=== PATIENT | female | born 1970 | race African-American/Black ===

== ENCOUNTER 2017-05-31 16:03 | Emergency (ER) | payer SELFPAY ==
[~2017-05-31] VITALS: Ht 182.9 cm; Wt 100.0 kg
[~2017-05-31 16:03] MED LIST: TOPA25TA8 PO
[2017-05-31 16:06] VITALS: BP 143/73; PULSE 74; RESP 18; TEMP 98.6; O2SAT 100
--- NOTE | 2017-05-31 16:15 | PD ---
Physical Exam Date Seen by Provider: May 31, 2017 Time Seen by Provider: 16:13 Narrative 46 yr old female with no PMH here with c/o chest pain for 24 hours, radiating left arm pain for 8 hours and sob for 17 days. 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 She denies any recent travel or long trips. Her PCP is Dr. Hull. She is awaiting bed placement. Data Data Last Documented VS Vital Signs Date Time Temp Pulse Resp B/P (MAP) Pulse Ox O2 Delivery O2 Flow Rate FiO2 05/31/17 16:06 98.6 74 18 143/73 (96) 100 Room Air MDM Medical Record Reviewed: Yes Supervised Visit with ANANTH: No Condition: Stable Elaine Castrejon May 31, 2017 16:15
[2017-05-31] MEDS ORDERED: SODIUM CHLORIDE 0.9% FLUSH 10 ML FLUSH IVF PRN (16:30)
--- NOTE | 2017-05-31 17:24 | RADRPT ---
EXAM DATE/TIME: 05/31/2017 16:39 [facility] COMPARISON: No previous studies available for comparison. INDICATIONS : Chest pain for 8 hours, shortness of breath for 2 weeks MEDICAL HISTORY : Pulmonary emboli, TIA SURGICAL HISTORY : None. ENCOUNTER: Initial ACUITY: 1 day PAIN SCORE: 9/10 LOCATION: Bilateral chest FINDINGS: PA and lateral views of the chest demonstrate the lungs to be symmetrically aerated without evidence of mass, infiltrate or effusion. The cardiomediastinal contours are unremarkable. Osseous structure s are intact. CONCLUSION: No acute disease. Rod Hoffman MD FACR on May 31, 2017 at 17:22 Board Certified Radiologist. This report was verified electronically.
--- NOTE | 2017-05-31 19:26 | PD ---
HPI Chief Complaint: Chest Pain Time Seen by Provider: 19:12 Travel History International Travel<30 days: No Contact w/Intl Traveler<30days: No Traveled to known affect area: No History of Present Illness HPI Patient comes in complaining of shortness of breath ongoing for 17 days. Patient states more she woke having substernal chest pain that radiates to her back and her left upper extremity. Patient denies doing anything for this. Patient denies nausea, vomiting, fevers, cough, abdominal pain, change in bowel or bladder, numbness or tingling anywhere. Patient reports a history of a PE approximately 4 years ago was on blood thinners for approximately 6 months and taken off. Patient reports pain is worse with movement. Reports shortness of breath is worse when she is around smoke. Denies anything making it better. 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 ) Diabetes: No Diminished Hearing: No Glaucoma: No Headaches: Yes (NEUROPALEGIC MIGRAINES) Hepatitis: No Hiatal Hernia: No Hypertension: Yes Medical other: No (hx of tia,pneumonia,anemia,hemiplegic migraines) Musculoskeletal: No Neurologic: Yes (hemipelegic migraines) Psychiatric: No Reproductive: No Respiratory: Yes (PE) Migraines: Yes Seizures: No Thyroid Disease: No ?: Not LMP: 05/09/17 Past Surgical History Abdominal Surgery: Yes (hernia repair) Gynecologic Surgery: Yes (cervical bx) Other Surgery: No Social History Alcohol Use: Yes (OCCASIONALLY) Tobacco Use: No Substance Use: No Allergies-Medications (Allergen,Severity, Reaction): Coded Allergies: mushroom (Unverified Allergy, Severe, ITCHING, 05/31/17) warfarin (Unverified Allergy, Severe, Swelling, 05/31/17) naproxen (Unverified Allergy, Intermediate, HEADACHE, 05/31/17) Reported Meds & Prescriptions Reported Meds & Active Scripts Active No Active Prescriptions or Reported Medications Review of Systems Except as stated in HPI: all other systems reviewed are Neg Physical Exam Narrative GENERAL: Well-developed, overly nourished, in no acute distress, and non-ill appearing. SKIN: Focused skin assessment warm and dry. HEAD: Atraumatic. Normocephalic. EYES: Pupils equal and round. EOMI. No scleral icterus. No injection or drainage. ENT: No nasal bleeding or discharge. Mucous membranes pink and moist. NECK: Trachea midline. No JVD. Supple. No nuclear rigidity. CARDIOVASCULAR: Regular rate and rhythm. No murmur appreciated. RESPIRATORY: No accessory muscle use. No respiratory distress. Clear to auscultation. Breath sounds equal bilaterally. MUSCULOSKELETAL: No obvious deformities. No clubbing. No cyanosis. No edema. Full range of motion. NEUROLOGICAL: Awake and alert. No obvious cranial nerve deficits. Motor grossly within normal limits. Normal speech. PSYCHIATRIC: Appropriate mood and affect; insight and judgment normal. Data Data Last Documented VS Vital Signs Date Time Temp Pulse Resp B/P (MAP) Pulse Ox O2 Delivery O2 Flow Rate FiO2 05/31/17 23:44 05/31/17 16:06 98.6 74 18 100 Room Air Orders Orders Electrocardiogram (05/31/17 16:16) Basic Metabolic Panel (Bmp) (05/31/17 16:16) Ckmb (Isoenzyme) Profile (05/31/17 16:16) Complete Blood Count With Diff (05/31/17 16:16) D-Dimer (05/31/17 16:16) Magnesium (Mg) (05/31/17 16:16) Prothrombin Time / Inr (Pt) (05/31/17 16:16) Act Partial Throm Time (Ptt) (05/31/17 16:16) Troponin I (05/31/17 16:16) Sodium Chloride 0.9% Flush (Ns Flush) (05/31/17 16:30) Chest, Pa & Lat (05/31/17 16:16) CKMB (05/31/17 20:05) CKMB% (05/31/17 20:05) Ct Pulmonary Angiogram (05/31/17 ) Iohexol 350 Inj (Omnipaque 350 Inj) (05/31/17 22:19) Labs Laboratory Tests Test 05/31/17 20:05 White Blood Count 6.5 TH/MM3 Red Blood Count 4.16 MIL/MM3 Hemoglobin 11.4 GM/DL Hematocrit 35.7 % Mean Corpuscular Volume 85.9 FL Mean Corpuscular Hemoglobin 27.4 PG Mean Corpuscular Hemoglobin Concent 31.9 % Red Cell Distribution Width 13.6 % Platelet Count 307 TH/MM3 Mean Platelet Volume 8.3 FL Neutrophils (%) (Auto) 51.9 % Lymphocytes (%) (Auto) 36.1 % Monocytes (%) (Auto) 9.9 % Eosinophils (%) (Auto) 1.5 % Basophils (%) (Auto) 0.6 % Neutrophils # (Auto) 3.4 TH/MM3 Lymphocytes # (Auto) 2.4 TH/MM3 Monocytes # (Auto) 0.6 TH/MM3 Eosinophils # (Auto) 0.1 TH/MM3 Basophils # (Auto) 0.0 TH/MM3 CBC Comment DIFF FINAL Differential Comment Prothrombin Time 11.1 SEC Prothromb Time International Ratio 1.0 RATIO Activated Partial Thromboplast Time 23.8 SEC D-Dimer Quantitative (PE/DVT) 0.42 MG/L FEU Blood Urea Nitrogen 7 MG/DL Creatinine 0.75 MG/DL Random Glucose 72 MG/DL Calcium Level 8.8 MG/DL Magnesium Level 1.8 MG/DL Sodium Level 139 MEQ/L Potassium Level 3.6 MEQ/L Chloride Level 105 MEQ/L Carbon Dioxide Level 26.2 MEQ/L Anion Gap 8 MEQ/L Estimat Glomerular Filtration Rate 102 ML/MIN Total Creatine Kinase 116 U/L Creatine Kinase MB 0.6 NG/ML Troponin I LESS THAN 0.02 NG/ML MDM Medical Decision Making Medical Screen Exam Complete: Yes Emergency Medical Condition: Yes Interpretation(s) Chest x-ray read by radiology shows: No acute disease. EKG reviewed by Dr. Hewitt shows sinus bradycardia with a ventricular rate of 55. No STEMI. Differential Diagnosis Pneumonia, acute coronary syndrome, pleurisy, atypical chest pain, pneumothorax , bronchitis, electrolyte abnormality, other Narrative Course Patient was seen and examined. Initial laboratory and radiological studies were ordered. Patient is signed out to Dr. Hewitt at the end of my shift. Please see his documentation for final diagnosis and disposition. Scripts No Active Prescriptions or Reported Meds Condition: Santhosh Velasquez May 31, 2017 19:26
[2017-05-31 20:23] LABS: AUTOMATED NEUTROPHIL # 3.4 TH/MM3 (1.8-7.7); BASOPHIL % 0.6 % (0.0-2.0); EOSINOPHIL # 0.1 TH/MM3 (0-0.4); EOSINOPHIL % 1.5 % (0.0-4.0); HEMATOCRIT 35.7 % (35.0-46.0); HEMO FLAGS DIFF FINAL; LYMPH % 36.1 % (9.0-44.0); LYMPHOCYTE # 2.4 TH/MM3 (1.0-4.8); MEAN CELL VOLUME 85.9 FL (80.0-100.0); MEAN CORPUSCULAR HEMOGLOBIN 27.4 PG (27.0-34.0); MEAN CORPUSCULAR HGB CONC 31.9 % (32.0-36.0); MONO % 9.9 % (0.0-8.0); NEUT % 51.9 % (16.0-70.0); PLATELET COUNT 307 TH/MM3 (150-450); RED BLOOD COUNT 4.16 MIL/MM3 (4.00-5.30); RED CELL DISTRIBUTION WIDTH 13.6 % (11.6-17.2); WHITE BLOOD COUNT 6.5 TH/MM3 (4.0-11.0)
[2017-05-31 20:38] LABS: APTT (PATIENT) 23.8 SEC (24.3-30.1); PROTHROMBIN TIME - PATIENT 11.1 SEC (9.8-11.6)
[2017-05-31 20:43] LABS: ANION GAP 8 MEQ/L (5-15); BICARBONATE 26.2 MEQ/L (21.0-32.0); BLOOD UREA NITROGEN 7 MG/DL (7-18); CHLORIDE 105 MEQ/L (98-107); GLOMERULAR FILTRATION RATE 102 ML/MIN (>89); MAGNESIUM 1.8 MG/DL (1.5-2.5); POTASSIUM 3.6 MEQ/L (3.5-5.1); SODIUM (NA) 139 MEQ/L (136-145)
[2017-05-31 20:48] LABS: CREATINE KINASE 116 U/L (26-192)
[2017-05-31 21:00] LABS: CKMB 0.6 NG/ML (0.5-3.6)
[2017-05-31] MEDS ORDERED: IOHEXOL 350 MG/ML 10 ML VIAL (for RAD DIAG) IVCONTRAST ONE (22:19)
--- NOTE | 2017-05-31 23:09 | RADRPT ---
EXAM DATE/TIME: 05/31/2017 22:14 [facility] COMPARISON: No previous studies available for comparison. INDICATIONS : Chest pain and shortness of breath; rule out pulmonary embolus. IV CONTRAST: 76 cc Omnipaque 350 (iohexol) IV RADIATION DOSE: 23.23 CTDIvol (mGy) MEDICAL HISTORY : Cerebrovascular disease. Deep venous thrombosis. Hypertension.PE SURGICAL HISTORY : hernia repair ENCOUNTER: Initial ACUITY: 1 day PAIN SCALE: 7/10 LOCATION: chest TECHNIQUE: Volumetric scanning of the chest was performed using a pulmonary embolism protocol MIP images were re constructed. Using automated exposure control and adjustment of the mA and/or kV according to patien t size, radiation dose was kept as low as reasonably achievable to obtain optimal diagnostic quality images. DICOM format image data is available electronically for review and comparison. Follow-up recommendations for detected pulmonary nodules are based at a minimum on nodule size and pa tient risk factors according to Fleischner Society Guidelines. FINDINGS: No filling defects identified to suggest pulmonary embolic disease. Minimal dependent atelectasis in the lungs. No pleural or pericardial effusion. No hilar, mediastinal axillary adenopathy. No acute fi ndings in the upper abdomen. CONCLUSION: 1. Negative for pulmonary embolus. Minimal dependent atelectasis in the lungs. Laureano Cote MD on May 31, 2017 at 23:06 Board Certified Radiologist. This report was verified electronically.
--- NOTE | 2017-05-31 23:20 | PD ---
Data Data Last Documented VS Vital Signs Date Time Temp Pulse Resp B/P (MAP) Pulse Ox O2 Delivery O2 Flow Rate FiO2 05/31/17 23:44 05/31/17 16:06 98.6 74 18 100 Room Air Blood pressure 143/73 Orders Orders Electrocardiogram (05/31/17 16:16) Basic Metabolic Panel (Bmp) (05/31/17 16:16) Ckmb (Isoenzyme) Profile (05/31/17 16:16) Complete Blood Count With Diff (05/31/17 16:16) D-Dimer (05/31/17 16:16) Magnesium (Mg) (05/31/17 16:16) Prothrombin Time / Inr (Pt) (05/31/17 16:16) Act Partial Throm Time (Ptt) (05/31/17 16:16) Troponin I (05/31/17 16:16) Sodium Chloride 0.9% Flush (Ns Flush) (05/31/17 16:30) Chest, Pa & Lat (05/31/17 16:16) CKMB (05/31/17 20:05) CKMB% (05/31/17 20:05) Ct Pulmonary Angiogram (05/31/17 ) Iohexol 350 Inj (Omnipaque 350 Inj) (05/31/17 22:19) Labs Laboratory Tests Test 05/31/17 20:05 White Blood Count 6.5 TH/MM3 Red Blood Count 4.16 MIL/MM3 Hemoglobin 11.4 GM/DL Hematocrit 35.7 % Mean Corpuscular Volume 85.9 FL Mean Corpuscular Hemoglobin 27.4 PG Mean Corpuscular Hemoglobin Concent 31.9 % Red Cell Distribution Width 13.6 % Platelet Count 307 TH/MM3 Mean Platelet Volume 8.3 FL Neutrophils (%) (Auto) 51.9 % Lymphocytes (%) (Auto) 36.1 % Monocytes (%) (Auto) 9.9 % Eosinophils (%) (Auto) 1.5 % Basophils (%) (Auto) 0.6 % Neutrophils # (Auto) 3.4 TH/MM3 Lymphocytes # (Auto) 2.4 TH/MM3 Monocytes # (Auto) 0.6 TH/MM3 Eosinophils # (Auto) 0.1 TH/MM3 Basophils # (Auto) 0.0 TH/MM3 CBC Comment DIFF FINAL Differential Comment Prothrombin Time 11.1 SEC Prothromb Time International Ratio 1.0 RATIO Activated Partial Thromboplast Time 23.8 SEC D-Dimer Quantitative (PE/DVT) 0.42 MG/L FEU Blood Urea Nitrogen 7 MG/DL Creatinine 0.75 MG/DL Random Glucose 72 MG/DL Calcium Level 8.8 MG/DL Magnesium Level 1.8 MG/DL Sodium Level 139 MEQ/L Potassium Level 3.6 MEQ/L Chloride Level 105 MEQ/L Carbon Dioxide Level 26.2 MEQ/L Anion Gap 8 MEQ/L Estimat Glomerular Filtration Rate 102 ML/MIN Total Creatine Kinase 116 U/L Creatine Kinase MB 0.6 NG/ML Troponin I LESS THAN 0.02 NG/ML MDM Medical Record Reviewed: Yes Supervised Visit with ANANTH: Yes Narrative Course CBC & BMP Diagram 05/31/17 20:05 Calcium Level 8.8, Magnesium Level 1.8 Tn <0.02 DDimer 0.42 Last 24 hours Impressions Chest X-Ray 05/31/17 1616 Signed Impressions: Service Date/Time: Wednesday, May 31, 2017 16:39 - CONCLUSION: No acute disease. Rod Hoffman MD FACR CT Angiography 05/31/17 0000 Signed Impressions: Service Date/Time: Wednesday, May 31, 2017 22:14 - CONCLUSION: 1. Negative for pulmonary embolus. Minimal dependent atelectasis in the lungs. Laureano Cote MD Pt agrees to follow up with Dr Hull within 2 weeks. Diagnosis Primary Impression: Chest pain Qualified Codes: R07.9 - Chest pain, unspecified Referrals: Romeo Hull MD 2 days Additional Instruction: You have a choice when it comes to health care, and we are glad that you chose [facility]. Hopefully, we have met your expectations on today's visit. You are welcome to return to [facility] at any time, as we are committed to meeting the health care needs of our community. Scripts No Active Prescriptions or Reported Meds Disposition: DISCHARGE HOME Condition: Stable Tyler Hewitt MD May 31, 2017 23:20
--- NOTE | 2017-06-01 09:29 | EKG ---
Date Performed: 05/31/2017 Time Performed: 19:05:58 PTAGE: 46 years EKG: SINUS BRADYCARDIA BORDERLINE ECG PREVIOUS TRACING : 07/30/2011 10.53 DOCTOR: Mika Mathews Interpretating Date/Time 06/01/2017 09:28:33
== END 2017-05-31 23:55 | disposition home or self-care (01) ==
LOC: NEPE 16:03
DX: R07.9 Chest pain, unspecified (principal); R00.1 Bradycardia, unspecified; Z86.711 Personal history of pulmonary embolism
CPT/HCPCS: 71020; 71275; 80048; 82550; 82552; 83735; 84484; 85025; 85379; 85610; 85730; 93005; 99285; Q9967